=== PATIENT | male | born 1970 | race Caucasian/White ===

== ENCOUNTER 2019-02-24 01:00 | Emergency (ER) | payer OTHER ==
[~2019-02-24] VITALS: Ht 188 cm; Wt 107.0 kg
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
--- NOTE | 2019-02-24 02:00 | NUR ---
18G LAC IV STARTED, LABS SENT
[2019-02-24 02:15] LABS: CALCIUM, SERUM 8.4 mg/dL (8.5-10.1); CREATININE 1.2 mg/dL (0.6-1.3); POTASSIUM 4.2 mmol/L (3.5-5.1)
--- NOTE | 2019-02-24 02:29 | NUR ---
PT TAKEN TO CT VIA [facility].
[2019-02-24] MEDS ORDERED: IOHEXOL-300 100 ML VIAL IV ONE (02:31)
--- NOTE | 2019-02-24 02:42 | NUR ---
PT RETURNED FROM CT.
--- NOTE | 2019-02-24 03:45 | NUR ---
IV removed. Catheter intact and site benign. Pressure and 4x4 applied to site. No bleeding noted.
--- NOTE | 2019-02-24 03:45 | NUR ---
Patient discharged to home in stable condition. Written and verbal after care instructions given. Patient verbalizes understanding of instruction.
[2019-02-24 03:46] VITALS: BP 133/78
== END 2019-02-24 03:47 | disposition home or self-care (01) ==
LOC: ER 01:02
DX: R10.12 Left upper quadrant pain (principal); V49.59XA Passenger injured in collision with other motor vehicles in traffic accident, initial encounter; Y93.89 Activity, other specified; Y92.413 State road as the place of occurrence of the external cause; Y99.8 Other external cause status
CPT/HCPCS: 36415; 74177; 80048; 99284; Q9967

== ENCOUNTER 2024-10-11 06:35 | Emergency (ER) | payer OTHER ==
[~2024-10-11] VITALS: Ht 188 cm; Wt 108.9 kg
[2024-10-11] MEDS ORDERED: IBUPROFEN 400 MG TABLET ONE (07:29)
[2024-10-11] MEDS: IBUPROFEN 400 MG TABLET PO ONE (07:30)
[2024-10-11] MEDS: oxyCODONE/APAP (5/325 MG) 1 UDTAB TABLET PO ONE (09:00)
[2024-10-11] MEDS ORDERED: oxyCODONE/APAP (5/325 MG) 1 UDTAB TABLET ONE (09:12)
[2024-10-11 09:28] VITALS: BP 129/82; TEMP 98; O2SAT 99
== END 2024-10-11 09:29 | disposition home or self-care (01) ==
LOC: ER 06:40
DX: S63.282A Dislocation of proximal interphalangeal joint of right middle finger, initial encounter (principal); M79.605 Pain in left leg; R07.81 Pleurodynia; Z88.0 Allergy status to penicillin; V47.5XXA Car driver injured in collision with fixed or stationary object in traffic accident, initial encounter; Y93.89 Activity, other specified; Y92.488 Other paved roadways as the place of occurrence of the external cause; Y99.8 Other external cause status
CPT/HCPCS: 71100-TC; 73130-TC; 73590-TC; G0500